=== PATIENT | female | born 1965 | race Caucasian/White ===

== ENCOUNTER → 2017-11-17 | Outpatient (CLI) | payer OTHER | LOC: RAD 10:27 | DX: R29.898 Other symptoms and signs involving the musculoskeletal system (principal) ==

== ENCOUNTER → 2018-03-31 | Outpatient (CLI) | payer OTHER | LOC: MAMMO 09:55 | DX: Z13.820 Encounter for screening for osteoporosis (principal); M85.88 Other specified disorders of bone density and structure, other site ==

== ENCOUNTER → 2018-04-14 | Outpatient (CLI) | payer OTHER | LOC: MAMMO 13:04 | DX: N60.02 Solitary cyst of left breast (principal) ==

== ENCOUNTER 2018-06-20 10:30 | Outpatient (RCR) | payer OTHER | END 2018-06-20 11:00 | disposition home or self-care (01) | LOC: PT 10:30 | DX: S30.0XXD Contusion of lower back and pelvis, subsequent encounter (principal); M25.551 Pain in right hip; W01.0XXD Fall on same level from slipping, tripping and stumbling without subsequent striking against object, subsequent encounter ==

== ENCOUNTER → 2019-12-13 | Outpatient (CLI) | payer OTHER | LOC: MAMMO 08:30 | DX: Z12.31 Encounter for screening mammogram for malignant neoplasm of breast (principal) ==

== ENCOUNTER → 2021-04-10 | Outpatient (CLI) | payer OTHER | LOC: MAMMO 10:16 | DX: Z12.31 Encounter for screening mammogram for malignant neoplasm of breast (principal) ==